=== PATIENT | female | born 1985 | race Caucasian/White ===

== ENCOUNTER 2016-11-03 12:43 | Emergency (ER) | payer MEDICAID, OTHER ==
[~2016-11-03] VITALS: Ht 160 cm; Wt 140.0 kg
[~2016-11-03 12:43] MED LIST: CHOL50009 PO
[2016-11-03 12:46] VITALS: Ht 160 cm; Wt 140.0 kg
[2016-11-03] MEDS ORDERED: ONDANSETRON (ODT) 4 MG TAB ODT STA (14:32)
[2016-11-03] MEDS ORDERED: MECLIZINE 12.5 MG TAB PO ONE (15:00)
[2016-11-03 15:25] LABS: BASOPHILS % 0.3 % (0.0-2.0); EOSINOPHILS # 0.1 10^3/ul (0.0-0.5); EOSINOPHILS % 0.7 % (0.0-7.0); HEMATOCRIT 37.5 % (37.0-47.0); HEMOGLOBIN 12.7 g/dl (12.0-16.0); LYMPHOCYTES # 3.1 10^3/ul (0.8-2.9); LYMPHOCYTES % 25.3 % (15.0-51.0); MEAN CORPUSCULAR HEMOGLOBIN 28.5 pg (29.0-33.0); MEAN CORPUSCULAR HGB CONC 33.9 g/dl (32.0-37.0); MEAN PLATELET VOLUME 7.8 fl (7.4-10.4); MONOCYTE # 0.6 10^3/ul (0.3-0.9); MONOCYTES % 4.9 % (0.0-11.0); NEUTROPHIL # 8.4 10^3/ul (1.6-7.5); NEUTROPHILS % 68.8 % (39.0-77.0); PLATELET COUNT 389 10^3/UL (140-440); RED BLOOD COUNT 4.46 10^6/ul (4.20-5.40); RED CELL DISTRIBUTION WIDTH 13.9 % (11.5-14.5); UNCORRECTED WBC 12.3 10^3/ul (4.8-10.8); WHITE BLOOD COUNT 12.3 10^3/ul (4.8-10.8)
--- NOTE | 2016-11-03 15:25 | RADRPT ---
PROCEDURE: CT Brain without. CLINICAL INDICATION: Headache. TECHNIQUE: A CT of the brain was performed on multidetector high-resolution CT scanner utilizing a xial sections from the skull base through the vertex without contrast. The scan was reviewed in sof t tissue brain and high frequency resolution bone algorithm windows. Images were reviewed on a high -resolution PACS workstation. One or more the following does reduction techniques were utilized: Aut omated exposure control, adjustment of the mA/ or kV according to patient's size, or use of iterativ e reconstruction technique. The exam CTDI and the DLP are not provided. COMPARISON: Brain CT 07/12/2014. FINDINGS: The ventricles and sulci are age-appropriate. There is no intracranial hemorrhage, mass effect or mi dline shift. No abnormal intra-axial or extra-axial fluid collections are seen. The adamson/white jaison er differentiation is preserved. No acute skull abnormality is noted. The visualized paranasal sinus es are essentially clear. IMPRESSION: 1. No acute intracranial hemorrhage, transcortical infarction or mass effect. RPTAT: HH .Tracey Watts MD, MD Date Time Electronically viewed and signed by .Tracey Watts MD, MD on 11/03/2016 15:24 .N/
[2016-11-03 15:28] LABS: CONDITION 1
[2016-11-03 15:40] LABS: POTASSIUM 4.2 mmol/L (3.5-5.1)
[2016-11-03 15:43] LABS: CREATININE 1.12 mg/dl (0.44-1.00)
[2016-11-03 15:44] LABS: CALCIUM 9.1 mg/dl (8.4-10.2)
[2016-11-03] MEDS ORDERED: ONDA4TAB8 PO (15:49)
[2016-11-03] MEDS ORDERED: MECL12.574 PO (15:49)
--- NOTE | 2016-11-03 16:00 | ERD ---
ER Documentation Chief Complaint Date/Time DATE: 11/03/16 TIME: 15:57 Chief Complaint DIZZINESS WITH NAUSEA X 2 DAYS HPI This is a 31-year-old female presents to the ER with dizziness that started yesterday. Patient states that dizziness feels as if a wave is going through her body. Dizziness is worse whenever she moves. Patient has associated nausea and vomiting. The vomiting is nonbilious nonbloody. She does not have any diarrhea. Patient states that the right side of her head feels as if it is tingling. Patient denies any vision changes. She denies any eye pain. Patient did not lose consciousness. Patient has not had any recent trauma. Patient has not tried anything for her dizziness. Patient denies any chest pain , shortness of breath, palpitations. Patient does admit to a recent upper respiratory infection about 2 weeks ago. ROS 12 point review of systems was done, all negative except per HPI. Medications Home Meds Active Scripts Ondansetron Hcl* (Zofran*) 4 Mg Tablet, 4 MG PO Q6H for NAUSEA AND/OR VOMITING, #30 TAB Prov:RACHEAL SWEENEY 11/03/16 Meclizine Hcl* (Antivert*) 12.5 Mg Tab, 12.5 MG PO Q6H Y for DIZZINESS, #20 TAB Prov:RACHEAL SWEENEY 11/03/16 Reported Medications Cholecalciferol* (Vitamin D*) 5,000 Unit Tablet, 82981 UNIT PO EVERY WEDNESDAY, TAB 07/12/14 Allergies Allergies: Coded Allergies: No Known Allergy (Unverified , 07/12/14) PMhx/Soc Medical and Surgical Hx: pt denies Medical Hx, pt denies Surgical Hx Hx Alcohol Use: No Hx Substance Use: No Hx Tobacco Use: No Physical Exam Vitals Vital Signs Date Time Temp Pulse Resp B/P Pulse Ox O2 Delivery O2 Flow Rate FiO2 11/03/16 12:46 97.9 100 18 137/88 99 Physical Exam GENERAL: The patient is well developed and appropriate for usual state of health , in no apparent distress. HEENT: Atraumatic. Conjunctivae are pink. Pupils equal, round, and reactive to light. Extraocular muscles are grossly intact. No nystagmus. Bilateral tympanic membranes are clear with no evidence of erythema, bulging or perforation. NECK: C-spine is soft and supple. There is no cervical lymphadenopathy. CHEST: Clear to auscultation bilaterally. There are no rales, wheezes or rhonchi. HEART: Regular rate and rhythm. No murmurs, clicks, rubs or gallops. EXTREMITIES: Equal pulses bilaterally. There is no peripheral clubbing, cyanosis or edema. No focal swelling or erythema. Full range of motion. Grossly neurovascularly intact. NEURO: Alert and oriented. Cranial nerves II through XII are intact. Motor strength in all 4 extremities with 5/5 strength. Sensation grossly intact. Normal speech and gait. Negative Rhomberg. +2 DTRs. SKIN: There is no apparent rash or petechia. The skin is warm and dry. Result Diagram: 11/03/16 1455 11/03/16 1455 Results 24 hrs Laboratory Tests Test 11/03/16 14:55 11/03/16 16:05 Anion Gap 19 Basophils # 0.010^3/ul Basophils % 0.3% Blood Morphology Comment Blood Urea Nitrogen 14mg/dl Calcium Level 9.1mg/dl Carbon Dioxide Level 24mmol/L Chloride Level 105mmol/L Creatinine 1.12mg/dl Eosinophils # 0.110^3/ul Eosinophils % 0.7% Glucose Level 113mg/dl Hematocrit 37.5% Hemoglobin 12.7g/dl Lymphocytes # 3.110^3/ul Lymphocytes % 25.3% Mean Corpuscular Hemoglobin 28.5pg Mean Corpuscular Hemoglobin Concent 33.9g/dl Mean Corpuscular Volume 84.0fl Mean Platelet Volume 7.8fl Monocytes # 0.610^3/ul Monocytes % 4.9% Neutrophils # 8.410^3/ul Neutrophils % 68.8% Nucleated Red Blood Cells # 0.010^3/ul Nucleated Red Blood Cells % 0.0/100WBC Platelet Count 01454^3/UL Potassium Level 4.2mmol/L Red Blood Count 4.4610^6/ul Red Cell Distribution Width 13.9% Sodium Level 144mmol/L White Blood Count 12.310^3/ul Bedside Urine Blood Negative Bedside Urine Glucose (UA) Negative Bedside Urine Ketones (LAB) Negative Bedside Urine Leukocyte Esterase (L Negative Bedside Urine Nitrite (LAB) Negative Bedside Urine Protein (LAB) Trace Bedside Urine pH (LAB) 6.0 Current Medications Medications (Trade) Dose Ordered Sig/Yoli Route PRN Reason Start Time Stop Time Status Last Admin Dose Admin Ondansetron HCl (Zofran Odt) 4 mg ONCE STAT ODT 11/03/16 14:32 11/03/16 14:35 DC 11/03/16 14:57 Meclizine HCl (Antivert) 25 mg ONCE ONCE PO 11/03/16 15:00 11/03/16 15:01 DC 11/03/16 14:57 Procedures/MDM EK bpm no st elevation no t wave inversion no arrhythmias. Differential Diagnosis includes but is not limited to; Benign positional vertigo , labyrinthitis, vertigo, MS, acoustic neuroma, arrhythmia, anemia, hypoglycemia , infection, dehydration. This is a 31-year-old female presents to the ER with dizziness for the last 2 days. Patient may have vertigo versus labyrinthitis. Patient is neurologically intact with no focal neurological deficits. Her examinations were on normal in the ER. Patient's vital signs are stable. Patient is afebrile and well-appearing. Patient will be sent home with Zofran and meclizine. She is to follow-up with her primary care doctor within 1-2 days or return to ER sooner if symptoms worsen. My medical decision making was shared with the patient patient should see a neurologist if discomfort continues. Patient understands and agrees with plan. Departure Diagnosis: Primary Impression: Dizziness Condition: Stable Patient Instructions: Dizziness, Unk Cause Additional Instructions: Call your primary care doctor TOMORROW for an appointment during the next 1-2 days.See the doctor sooner or return here if your condition worsens before your appointment time. RACHEAL SWEENEY Nov 03, 2016 16:00
[2016-11-03 16:03] LABS: URINE BLOOD (Dip) POC Negative (NEGATIVE)
== END 2016-11-03 16:32 | disposition home or self-care (01) ==
LOC: FTE 12:43
DX: R42 Dizziness and giddiness (principal); R11.2 Nausea with vomiting, unspecified
CPT/HCPCS: 36415; 70450; 80048; 81003; 85025; 93005; Z7502; Z7610

== ENCOUNTER 2016-11-30 00:26 | Emergency (ER) | END 2016-11-30 04:54 | disposition home or self-care (01) | DX: J06.9 Acute upper respiratory infection, unspecified (principal) ==

== ENCOUNTER 2018-04-13 15:53 | Emergency (ER) | END 2018-04-13 18:08 | disposition home or self-care (01) ==

== ENCOUNTER 2018-10-29 21:33 | Emergency (ER) | payer MEDICAID, OTHER ==
[~2018-10-29] VITALS: Ht 167.6 cm; Wt 133.2 kg
[~2018-10-29 21:33] MED LIST changes: +BENZ-6 PO; +CETI10CA PO; +FLUT9.9S NASAL; +IBUP-1542 PO; +MECL12.574 PO; +ONDA4TAB8 PO; +VALA10004 PO
[2018-10-29 21:47] VITALS: Ht 167.6 cm; Wt 133.2 kg
[2018-10-30] MEDS ORDERED: KETOROLAC 15 MG INJ IM STA (00:36)
[2018-10-30] MEDS ORDERED: ACETAMINOPHEN 325 MG TAB PO ONE (01:00)
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
[2018-10-30] MEDS ORDERED: IBUP-1542 PO (01:56)
[2018-10-30 02:48] VITALS: BP 138/74; PULSE 88; RESP 20
== END 2018-10-30 02:50 | disposition home or self-care (01) ==
LOC: FTE 21:33
DX: S60.222A Contusion of left hand, initial encounter (principal); S80.812A Abrasion, left lower leg, initial encounter; S29.012A Strain of muscle and tendon of back wall of thorax, initial encounter; V43.52XA Car driver injured in collision with other type car in traffic accident, initial encounter
CPT/HCPCS: 73130; 81025; 96372; 99284; J1885